=== PATIENT | female | born 1930 | race Caucasian/White ===

== ENCOUNTER 2018-06-09 12:22 | Observation (INO) | payer OTHER, MEDICARE ==
--- NOTE | 2018-06-09 13:11 | PDOC ---
History of Present Illness - General Chief Complaint: CVA/TIA Stated Complaint: TIA/CVA Time Seen by Provider: 06/09/18 12:46 History Source: Patient Exam Limitations: No Limitations - History of Present Illness Initial Comments: 06/09/18 13:05 Pt is an 87yo f with PMH of TIA (last 10-15y ago), breast ca s/p mastectomy, macular degeneration, osteoporosis, tachycardia, shingles presenting to ED with complaints of lightheadedness followed by slurred speech, inability to find words followed by frontal headache. Episode lasted around 5-10 minutes. Pt was talking to daughter on the phone 2 hours ago when this happened. She has macular degeneration in the R eye and numbness in her R medial 1st toe due to shingles. She is denying new numbness/tingling, weakness, changes in vision, ataxia, chest pain, sob, cough, fevers, chills, LOC, injury, dizziness, changes in hearing. PMD: [place] PMH: see hpi PSH: , mastectomy Meds: atenolol, ASA 81mg, Claritin Social: denies Allergies: nkda 06/09/18 14:59 Past History - Past Medical History Allergies/Adverse Reactions: Allergies Allergy/AdvReac Type Severity Reaction Status Date / Time No Known Allergies Allergy Verified 06/09/18 12:44 Home Medications: Ambulatory Orders Aspirin 81 mg PO DAILY 06/09/18 Atenolol [Tenormin -] 25 mg PO DAILY 06/09/18 Calcium Crb,Cit/D3/Min34/Alise [Citracal + Bone Density Tablet] 1 each PO DAILY 06/09/18 Cholecalciferol (Vitamin D3) [Vitamin D3] 1,000 unit PO DAILY 06/09/18 Loratadine 10 mg PO DAILY 06/09/18 Raloxifene HCl 60 mg PO DAILY 06/09/18 COPD: No CHF: No - Suicide/Smoking/Psychosocial Hx Smoking History: Never smoked Have you smoked in the past 12 months: No Information on smoking cessation initiated: No Hx Alcohol Use: No Drug/Substance Use Hx: No Substance Use Type: None *Physical Exam - Vital Signs Last Vital Signs Temp Pulse Resp BP Pulse Ox 98.0 F 66 16 165/76 98 06/09/18 12:46 06/09/18 12:46 06/09/18 12:46 06/09/18 12:46 06/09/18 12:46 NIH Stroke Scale - Last Known Well Date/Time & Onset Date Last Known Well: 06/09/18 Time Last Known Well: 11:10 - Initial Evaluation Level of consciousness: Alert Ask patient the month and their age: Answers both correctly Ask patient to open & close eyes; make fist and let go: Obeys both correctly Best gaze (horizontal eye movement): Normal Visual field testing: No visual field loss Facial paresis (Show teeth/raise eyebrows/close eyes tight): Minor paralysis ( flattened nasolabial fold, asymmetry on smiling) (left) Motor Function: Left Arm: Normal Motor Function: Right Arm: Normal (extends arm 90 (or 45) degrees for 10 seconds without drift Motor Function: Left Leg: Normal (extends leg 30 degrees for 5 seconds without drift) Motor Function: Right Leg: Normal (extends leg 30 degrees for 5 seconds without drift) Limb Ataxia: No ataxia Sensory(Use pinprick test arms,legs,trunk,face/side to side): Normal Best language (Describe picture, name items, read sentences): No Aphasia Dysarthria (read several words): Normal articulation Extinction and Inattention: No abnormality - Total Score NIH Stroke Scale Score: 1 TIA Risk Factors - ABCD Score Age: Age = or > 60 Blood Pressure: SBP =/> 140 Clinical Features of TIA: Speech impair w/o uni wk Diabetes: No Critical Care Time/MDM Note - Medical Decision Making Note: 06/09/18 13:27 Pt is an 87yo f with PMH of TIA (last 10-15y ago), breast ca s/p mastectomy, macular degeneration, osteoporosis, tachycardia, shingles presenting to ED with complaints of lightheadedness followed by slurred speech, inability to find words followed by frontal headache. *DC/Admit/Observation/Transfer - Referrals - Patient Instructions - Post Discharge Activity
[2018-06-09 13:26] LABS: BASO % 0.5 % (0-2.0); EOS % 2.4 % (0-4.5); HEMATOCRIT 38.1 % (32.4-45.2); HEMOGLOBIN 12.6 GM/dL (10.7-15.3); LYMPH % 16.2 % (8-40); MCH 28.1 pg (25.7-33.7); MCHC 33.1 g/dl (32.0-36.0); MEAN CELL VOLUME 84.9 fl (80-96); MEAN PLT VOLUME 9.1 fl (7.5-11.1); MONO % 8.6 % (3.8-10.2); NEUT % 72.3 % (42.8-82.8); PLATELET COUNT 255 K/MM3 (134-434); RBC 4.49 M/mm3 (3.60-5.2); RDW 13.6 % (11.6-15.6); WHITE BLOOD COUNT 7.2 K/mm3 (4.0-10.0)
[2018-06-09 13:47] LABS: INR 1.01 (0.83-1.09); PROTHROMBIN TIME (PATIENT) 11.9 SEC (9.7-13.0)
[2018-06-09 13:48] LABS: ACTIVATED PTT 28.9 SECONDS (25.2-36.5)
[2018-06-09 14:41] LABS: ALBUMIN 3.4 g/dl (3.4-5.0); ALK PHOS 106 U/L (45-117); ANION GAP 5 MMOL/L (8-16); BILIRUBIN,TOTAL 0.3 mg/dL (0.2-1); BLOOD UREA NITROGEN 14 mg/dL (7-18); CALCIUM 8.6 mg/dL (8.5-10.1); CHLORIDE 107 mmol/L (98-107); CO2 27 mmol/L (21-32); CREATININE 0.5 mg/dL (0.55-1.3); GLUCOSE,RANDOM 89 mg/dL (74-106); POTASSIUM 4.4 mmol/L (3.5-5.1); SGOT/AST 25 U/L (15-37); SGPT/ALT 22 U/L (13-61); SODIUM 140 mmol/L (136-145); TOT PROT 6.7 g/dl (6.4-8.2)
--- NOTE | 2018-06-09 16:35 | PDOC ---
Attending Attestation - Resident Resident Name: Gayatri Vallejo - ED Attending Attestation I have performed the following: I have examined & evaluated the patient, The case was reviewed & discussed with the resident, I agree w/resident's findings & plan, Exceptions are as noted - HPI HPI: 06/09/18 16:30 87 yo F h/o prior TIA, prior breast ca here with episode of slurred speech, difficulty finding words. happened earlier was on the phone with her daughter who noted as well. no focal weakness has since resolved and per her family and pt now at [facility]. no n/v no f/c no fall. recently had a who had cva and so pt very vigilant , no other complaints. no cp no sob. no leg swelling. - Physicial Exam PE: 06/09/18 16:32 awake alert lungs clear bilaterally heart rrr no mrg abd soft nt nd. ext wwp. skin warm and dry. nuero speech clear. alert oriented x 3. CN intact except mild nasolabial fold flattening left side. correct with smiling. 5/5 upper ext strength. 5/5 lower ext strength. finger to nose intact. sensation intact. - Medical Decision Making 06/09/18 16:35 87 yo F with TIA here with slurred speech, since resolved. now noted facial droop left side of face. differential cva, mass infection exacerbationg old stroke sxs. plan ct head. consult dr. charlton, labs ekg. will mena require admission. no TPA candidate as sxs have dramatically resolved. Heart Score/ECG Review #1 General ECG Interpretation: Sinus Rhythm (61), Normal Rate, Normal Intervals, No acute ischemic changes NIH Stroke Scale - Initial Evaluation Level of consciousness: Alert Ask patient the month and their age: Answers both correctly Ask patient to open & close eyes; make fist and let go: Obeys both correctly Best gaze (horizontal eye movement): Normal Visual field testing: No visual field loss Facial paresis (Show teeth/raise eyebrows/close eyes tight): Minor paralysis ( flattened nasolabial fold, asymmetry on smiling) (left nasolabial fold flatteing.) Motor Function: Left Arm: Normal Motor Function: Right Arm: Normal (extends arm 90 (or 45) degrees for 10 seconds without drift Motor Function: Left Leg: Normal (extends leg 30 degrees for 5 seconds without drift) Motor Function: Right Leg: Normal (extends leg 30 degrees for 5 seconds without drift) Limb Ataxia: No ataxia Sensory(Use pinprick test arms,legs,trunk,face/side to side): Normal Best language (Describe picture, name items, read sentences): No Aphasia Dysarthria (read several words): Normal articulation Extinction and Inattention: No abnormality - Total Score NIH Stroke Scale Score: 1
--- NOTE | 2018-06-09 20:39 | HP ---
Admitting History and Physical - Admission History of Present Illness: Pt is an 87yo f with PMH of TIA (last 10-15y ago), breast ca s/p mastectomy, macular degeneration, osteoporosis, tachycardia, shingles presenting to ED with complaints of lightheadedness followed by slurred speech, inability to find words followed by frontal headache. Episode lasted around 5-10 minutes. Pt was talking to daughter on the phone 2 hours ago when this happened. She has macular degeneration in the R eye and numbness in her R medial 1st toe due to shingles. She is denying new numbness/tingling, weakness, changes in vision, ataxia, chest pain, sob, cough, fevers, chills, LOC, injury, dizziness, changes in hearing. History Source: Patient, Family Member, Medical Record Limitations to Obtaining History: No Limitations - Past Medical History SCHOOL LIBRARIAN: Yes: TIA Reproductive: Yes: Postmenopausal Heme/Onc: Yes: Cancer (breast) - Smoking History Smoking history: Never smoked Have you smoked in the past 12 months: No - Alcohol/Substance Use Hx Alcohol Use: No History of Substance Use: reports: None - Social History Usual Living Arrangement: Yes: Alone ADL: Independent History of Recent Travel: No Home Medications - Allergies Allergies/Adverse Reactions: Allergies Allergy/AdvReac Type Severity Reaction Status Date / Time No Known Allergies Allergy Verified 06/09/18 12:44 - Home Medications Home Medications: Ambulatory Orders Aspirin 81 mg PO DAILY 06/09/18 Atenolol [Tenormin -] 25 mg PO DAILY 06/09/18 Calcium Crb,Cit/D3/Min34/Alise [Citracal + Bone Density Tablet] 1 each PO DAILY 06/09/18 Cholecalciferol (Vitamin D3) [Vitamin D3] 1,000 unit PO DAILY 06/09/18 Loratadine 10 mg PO DAILY 06/09/18 Raloxifene HCl 60 mg PO DAILY 06/09/18 Acetaminophen [Tylenol .Extra-Strength -] 500 mg PO PRN PRN 06/10/18 Preservision Areds Tablet 1 tablet PO DAILY 06/10/18 Remeron - 15 mg PO DAILY 06/10/18 Review of Systems - Review of Systems Constitutional: reports: No Symptoms. denies: Chills, Fever Eyes: denies: Blind Spots, Blurred Vision, Double Vision Neck: reports: No Symptoms Cardiovascular: reports: No Symptoms Respiratory: reports: No Symptoms Gastrointestinal: reports: No Symptoms Genitourinary: reports: No Symptoms Breasts: reports: No Symptoms Reported Integumentary: reports: No Symptoms Neurological: reports: Change in Speech, Confusion, Headache. denies: Change in LOC, Seizure Endocrine: reports: No Symptoms Hematology/Lymphatic: reports: No Symptoms Psychiatric: reports: No Symptoms Physical Examination Vital Signs: Vital Signs Temperature 98.0 F 06/09/18 12:46 Pulse Rate 71 06/09/18 18:49 Respiratory Rate 17 06/09/18 18:49 Blood Pressure 168/75 06/09/18 18:49 O2 Sat by Pulse Oximetry (%) 97 06/09/18 18:49 Constitutional: Yes: Well Nourished, No Distress, Calm Eyes: Yes: Conjunctiva Clear, EOM Intact HENT: Yes: Atraumatic, Normocephalic Neck: Yes: Supple, Trachea Midline Cardiovascular: Yes: Regular Rate and Rhythm Respiratory: Yes: Regular, CTA Bilaterally Gastrointestinal: Yes: Normal Bowel Sounds, Soft ...Rectal Exam: Yes: Deferred Renal/: Yes: WNL Breast(s): Yes: WNL Musculoskeletal: Yes: WNL Extremities: Yes: WNL Edema: No Peripheral Pulses WNL: Yes Integumentary: Yes: WNL Neurological: Yes: WNL, Alert, Oriented ...Motor Strength: WNL Psychiatric: Yes: Alert, Oriented Labs: CBC, BMP 06/09/18 13:13 06/09/18 13:13 Problem List - Problems (1) TIA (transient ischemic attack) Code(s): G45.9 - TRANSIENT CEREBRAL ISCHEMIC ATTACK, UNSPECIFIED (2) History of breast cancer Code(s): Z85.3 - PERSONAL HISTORY OF MALIGNANT NEOPLASM OF BREAST (3) Borderline hyperlipidemia Code(s): E78.5 - HYPERLIPIDEMIA, UNSPECIFIED
--- NOTE | 2018-06-09 21:33 | CON.NEURO ---
Consult - Past Medical History NUMERICAL CONTROL ROUTER OPERATOR: Yes: TIA - Alcohol/Substance Use Hx Alcohol Use: No - Smoking History Smoking history: Never smoked Have you smoked in the past 12 months: No - Social History ADL: Independent History of Recent Travel: No Home Medications - Allergies Allergies/Adverse Reactions: Allergies Allergy/AdvReac Type Severity Reaction Status Date / Time No Known Allergies Allergy Verified 06/09/18 12:44 - Home Medications Home Medications: Ambulatory Orders Aspirin 81 mg PO DAILY 06/09/18 Atenolol [Tenormin -] 25 mg PO DAILY 06/09/18 Calcium Crb,Cit/D3/Min34/Alise [Citracal + Bone Density Tablet] 1 each PO DAILY 06/09/18 Cholecalciferol (Vitamin D3) [Vitamin D3] 1,000 unit PO DAILY 06/09/18 Loratadine 10 mg PO DAILY 06/09/18 Raloxifene HCl 60 mg PO DAILY 06/09/18 Physical Exam-Neuro Vital Signs: Vital Signs Temperature 98.0 F 06/09/18 12:46 Pulse Rate 71 06/09/18 18:49 Respiratory Rate 17 06/09/18 18:49 Blood Pressure 168/75 06/09/18 18:49 O2 Sat by Pulse Oximetry (%) 97 06/09/18 18:49 Labs: CBC, BMP 06/09/18 13:13 06/09/18 13:13 INR, PTT INR 1.01 (0.83-1.09) 06/09/18 13:13 Assessment/Plan cc Slurring of speech lasting 20 minute HPI 87 year old female history of tia ( 15 years ago), on aspirin, has history of macular degeneration, osteoporosis, tachycardia, and breast ca s/p mastectomy. She came to hospital for lightheadedness followed by slurring of speech lasting for 20 minute. She has mild headhace. Patient has ct ehad it is normal. Family is very concerned as her recently three months ago. PMH as above FH,SH,ROS, reviewed in chart - Allergies Allergies/Adverse Reactions: Allergies Allergy/AdvReac Type Severity Reaction Status Date / Time No Known Allergies Allergy Verified 06/09/18 12:44 - Home Medications Home Medications: Ambulatory Orders Aspirin 81 mg PO DAILY 06/09/18 Atenolol [Tenormin -] 25 mg PO DAILY 06/09/18 Calcium Crb,Cit/D3/Min34/Alise [Citracal + Bone Density Tablet] 1 each PO DAILY 06/09/18 Cholecalciferol (Vitamin D3) [Vitamin D3] 1,000 unit PO DAILY 06/09/18 Loratadine 10 mg PO DAILY 06/09/18 Raloxifene HCl 60 mg PO DAILY 06/09/18 Neurological Examination Alert oriented x 3 CN all intact ? left facial palsy moving all extremity 5/5 all ext sensation is normal ct head unremarkable Assessment Most likley tia , transient slurring of speech lasting for 20 minute and ? left facial palsy Plan- mri of brain and start lipitor 20 once a day -continue apsirin - carotid ultrasound - will follow with primary Thanking you so much Tani Bennett MD
[2018-06-09] MEDS ORDERED: ATORVASTATIN CA 20 MG TABLET (FP) PO SCH (22:00)
[2018-06-09] MEDS ORDERED: ACETAMINOPHEN 500 MG TABLET (FP) PO PRN (22:43)
[2018-06-09] MEDS ORDERED: amLODIPine BESYLATE 5 MG TABLET (FP) PO ONE (22:45)
[2018-06-10 05:23] VITALS: BMI 20.5
[2018-06-10] MEDS ORDERED: ATENOLOL 25 MG TABLET (FP) PO SCH (10:00)
[2018-06-10] MEDS ORDERED: ASPIRIN 81 MG CHEWABLE TABLETS PO SCH (10:00)
--- NOTE | 2018-06-10 15:12 | PN ---
Progress Note (short form) - Note Progress Note: patient seen and examined in room son at bedside s/p carotid and MRI today speech clear / able to provide complete hx Vital Signs Period Temp Pulse Resp BP Sys/Mcpherson Pulse Ox Last 24 Hr 97.4 F-97.9 F 63-74 16-18 140-168/61-86 93-98 CN II -XII no gross deficit motor 5/5 sensory intact neck supple heart S1/S2 Lungs clear abd soft non tender ext no edema FROM CBC, BMP 06/09/18 13:13 06/09/18 13:13 ct OF HEAD/ MRI / Carotid -- all reviewed Active Medications Acetaminophen (Tylenol -) 500 mg PO Q6H PRN PRN Reason: PAIN Last Admin: 06/09/18 23:15 Dose: 500 mg Aspirin (Asa -) 81 mg PO DAILY ELI Last Admin: 06/10/18 09:11 Dose: 81 mg Atenolol (Tenormin -) 25 mg PO DAILY ELI Last Admin: 06/10/18 09:11 Dose: 25 mg Atorvastatin Calcium (Lipitor -) 20 mg PO HS [facility] Last Admin: 06/09/18 22:04 Dose: 20 mg # TIA no neurological findings MRI - No acute events continue ASA / add Lipitor / Bp control # HTN required additional medication last night given Amlodipine 5 mg Will continue with amoldipine as out patient and trend BP # HLD + cholesterol plaques on U/S Problem List - Problems (1) TIA (transient ischemic attack) Code(s): G45.9 - TRANSIENT CEREBRAL ISCHEMIC ATTACK, UNSPECIFIED (2) History of breast cancer Code(s): Z85.3 - PERSONAL HISTORY OF MALIGNANT NEOPLASM OF BREAST (3) Borderline hyperlipidemia Code(s): E78.5 - HYPERLIPIDEMIA, UNSPECIFIED
--- NOTE | 2018-06-10 15:13 | DS ---
Physical Examination Vital Signs: Vital Signs Temperature 97.9 F 06/10/18 10:00 Pulse Rate 74 06/10/18 10:00 Respiratory Rate 18 06/10/18 10:00 Blood Pressure 157/86 06/10/18 10:00 O2 Sat by Pulse Oximetry (%) 95 06/10/18 11:00 Findings/Remarks: Pt is an 87yo f with PMH of TIA (last 10-15y ago), breast ca s/p mastectomy, macular degeneration, osteoporosis, tachycardia, shingles presenting to ED with complaints of lightheadedness followed by slurred speech, inability to find words followed by frontal headache. Episode lasted around 5-10 minutes. Pt was talking to daughter on the phone 2 hours ago when this happened. She has macular degeneration in the R eye and numbness in her R medial 1st toe due to shingles. She is denying new numbness/tingling, weakness, changes in vision, ataxia, chest pain, sob, cough, fevers, chills, LOC, injury, dizziness, changes in hearing. # TIA no neurological findings MRI - No acute events continue ASA / add Lipitor / Bp control # HTN required additional medication last night given Amlodipine 5 mg Will continue with amoldipine as out patient and trend BP # HLD + cholesterol plaques on U/S plan of care discussed with patient and son ( [place]) Constitutional: Yes: Well Nourished, No Distress, Calm Eyes: Yes: WNL, Conjunctiva Clear, EOM Intact HENT: Yes: WNL, Atraumatic, Normocephalic Neck: Yes: WNL, Supple, Trachea Midline Cardiovascular: Yes: WNL, Regular Rate and Rhythm Respiratory: Yes: WNL, Regular, CTA Bilaterally Gastrointestinal: Yes: WNL, Normal Bowel Sounds, Soft ...Rectal Exam: Yes: WNL Renal/: Yes: WNL Breast(s): Yes: Other (right mastectomy) Musculoskeletal: Yes: WNL, Other (motor 5/5/ sensory grossly intact All extremities FROM) Extremities: Yes: WNL Edema: No Peripheral Pulses WNL: Yes Integumentary: Yes: WNL Neurological: Yes: WNL, Alert, Oriented. No: Ataxia, Confusion, Dysarthria, Facial Droop, Numbness, Unsteady Gait, Weakness ...Motor Strength: WNL Psychiatric: Yes: Alert, Oriented Labs: CBC, BMP 06/09/18 13:13 06/09/18 13:13 Discharge Summary Reason For Visit: TRANSIENT ISCHEMIC ATTACK Current Active Problems Borderline hyperlipidemia (Acute) History of breast cancer (Acute) TIA (transient ischemic attack) (Acute) Condition: Improved - Instructions Referrals: Selena Baker MD [Primary Care Provider] - - Home Medications Comprehensive Discharge Medication List: Ambulatory Orders Aspirin 81 mg PO DAILY 06/09/18 Atenolol [Tenormin -] 25 mg PO DAILY 06/09/18 Calcium Crb,Cit/D3/Min34/Alise [Citracal + Bone Density Tablet] 1 each PO DAILY 06/09/18 Cholecalciferol (Vitamin D3) [Vitamin D3] 1,000 unit PO DAILY 06/09/18 Loratadine 10 mg PO DAILY 06/09/18 Acetaminophen [Tylenol .Extra-Strength -] 500 mg PO PRN PRN 06/10/18 Preservision Areds Tablet 1 tablet PO DAILY 06/10/18 Remeron - 15 mg PO DAILY 06/10/18 amoldipine 5 mg q day lipitor 20mg q day
[2018-06-10 15:23] VITALS: BP 133/71; PULSE 63; TEMP 97.7
--- NOTE | 2018-06-10 16:16 | EKG ---
Test Reason : Blood Pressure : / mmHG Vent. Rate : 062 BPM Atrial Rate : 062 BPM P-R Int : 138 ms QRS Dur : 086 ms QT Int : 460 ms P-R-T Axes : 065 026 036 degrees QTc Int : 466 ms NORMAL SINUS RHYTHM POSSIBLE ANTERIOR INFARCT , AGE UNDETERMINED ABNORMAL ECG NO PREVIOUS ECGS AVAILABLE Confirmed by MD ERNESTINA, JAVIER ([id number]) on 06/10/2018 4:16:03 PM Referred By: Confirmed By:JAVIER DO MD
== END 2018-06-10 15:59 | disposition home or self-care (01) ==
LOC: JER 12:22 → JERBED 14:52 → J4S 21:08
PROVIDERS: ADMIT Family Medicine; ATTEND Family Medicine
DX: G45.9 Transient cerebral ischemic attack, unspecified (principal); E78.5 Hyperlipidemia, unspecified; H35.30 Unspecified macular degeneration; R20.0 Anesthesia of skin; I10 Essential (primary) hypertension; Z85.3 Personal history of malignant neoplasm of breast; Z79.82 Long term (current) use of aspirin; Z90.10 Acquired absence of unspecified breast and nipple
CPT/HCPCS: 36415; 70450-TC; 70551-TC; 80053; 84484; 85025; 85610; 85730; 93005; 93010; 93880-TC; 99285-25; G0378